=== PATIENT | female | born 2000 | race Caucasian/White ===

== ENCOUNTER 2021-08-15 21:27 | Emergency (ER) | payer BC, SELFPAY ==
--- NOTE | ~2021-08-15 | XR_ITS ---
EXAMINATION: XR WRIST, LEFT CLINICAL INFORMATION: Severe pain. COMPARISON: None TECHNIQUE: PA, lateral, and oblique views of the left wrist. FINDINGS: The bones and soft tissues are normal. No fracture. Alignment is anatomic with normal joint spaces. No erosions or abnormal soft tissue calcifications. XR/XR wrist LT min 3V IMPRESSION: Normal left wrist.
--- NOTE | 2021-08-15 23:39 | ED.EXTPRO ---
HPI - Extremity Problem General Chief complaint: Extremity Problem Stated complaint: severe left wrist pain Source: patient Mode of arrival: ambulatory Limitations: no limitations History of Present Illness HPI Narrative: 21-year-old female presents with severe left wrist pain. Does not report any trauma falls or injury. MD Complaint: extremity pain Onset (ago): day(s) (4) Pain Consistency: constant Location: left and upper extremity Severity scale (1-10): 8 Quality: aching Radiation: none Relieving factors: nothing Exacerbating factors: range of motion, exertion and palpation Associated symptoms: denies other symptoms Related Data Previous Rx's Medication Instructions Recorded ibuprofen 600 mg tablet 600 mg PO Q6H PRN #60 tab 08/16/21 Allergies Allergy/AdvReac Type Severity Reaction Status Date / Time varicella virus vaccine live Allergy Unknown Verified 08/15/21 23:58 varicella-zoster immune Allergy Unknown Verified 08/15/21 23:58 globulin (h Review of Systems Review of Systems: Constitutional: No Fever, No Chills ENT/Mouth: No Ear Pain, No Hoarseness, No sore throat Eyes: No Eye Pain, No Swelling, No Redness, No Foreign Body Cardiovascular: No Chest Pain, No SOB Respiratory: No Cough, No Dyspnea Gastrointestinal: No Nausea, No Vomiting, No Diarrhea, No abdominal Pain Genitourinary: No Dysuria, No Hematuria Musculoskeletal: positive left wrist pain, No Myalgias, No Joint Swelling Skin: No Skin lacerations, No rash Neuro: No Weakness, No Numbness, No Paresthesias, No Loss of Consciousness, No Dizziness, No Headache Psych: No Anxiety/Panic, No Depression Heme/Lymph: no easy bruising, no Lymphadenopathy Endocrine: No Polyuria, No Polydipsia Yes all other systems are reviewed and are negative [facility] Past Medical History Attestation statement: The following information was validated with the patient. Source: old records reviewed Social History Social History Advance Directives: No Patient : No Physical Exam Vital Signs: Vital Signs: Last Vital Signs Temp 99.3 F 08/15/21 23:45 Pulse 68 08/15/21 23:45 Resp 16 08/15/21 23:45 BP 123/70 08/15/21 23:45 Pulse Ox 99 08/15/21 23:45 BMI result Body Mass Index 27.4 Appearance: Alert. Oriented X3. No acute distress. Eyes: Pupils equal, round and reactive to light. ENT: Pharynx normal. Neck: Normal inspection. Neck supple. CVS: Normal heart rate and rhythm. Pulses normal. Respiratory: No respiratory distress. Breath sounds normal. Abdomen: Soft and nontender. Skin: Skin warm and dry. Normal skin color. Normal skin turgor. Extremities: No swelling bruising or ecchymosis noted to left upper extremity. Full range of motion. Negative de Quervain, negative Tinel and Phalen sign. Brisk capillary refill and equal pulses. Neuro: No motor deficit. No sensory deficit. Cranial nerves 2-12 intact. Course Course Course Narrative: 21-year-old female presents with severe left wrist pain that started on Friday. 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 De Quervain, Tinel and Phalen signs negative. Full range of motion to all digits, brisk capillary refill in equal pulses. Will order x-rays. 00:42 x-rays are negative for acute findings. Plan of care to discharge home with wrist splint and ibuprofen. Will refer to orthopedics for suspected carpal tunnel syndrome. Patient verbalized understanding of and agrees to plan of care to discharge home. Verbalized understanding of signs and symptoms indicating need for emergent intervention MDM - Extremity (Nontraumatic) MDM Narrative Medical decision making narrative: Fracture, dislocation, de Quervain tendinitis, carpal tunnel Medical Records Attestation: I reviewed the patient's medical records. Imaging Data Left wrist x-ray: Attestation: I personally reviewed and interpreted this imaging study as follows: Radiologist's impression: EXAMINATION: XR WRIST, LEFT CLINICAL INFORMATION: Severe pain.? COMPARISON: None? TECHNIQUE: PA, lateral, and oblique views of the left wrist. FINDINGS: The bones and soft tissues are normal. No fracture. Alignment is anatomic with normal joint spaces. No erosions or abnormal soft tissue calcifications.? XR/XR wrist LT min 3V IMPRESSION: Normal left wrist. Discharge Plan Discharge Clinical Impression: Acute wrist pain, Carpal tunnel syndrome on left Patient Disposition: Home, Self-Care Instructions: Wrist Injury (ED) Additional Instructions: You were evaluated for left wrist pain. X-rays are negative for acute findings requiring emergent intervention. This could possibly be carpal tunnel. Please follow-up with orthopedics as needed. I referred you to [facility]. Please call and request an appointment for evaluation. Take Motrin 600 mg every 6 hours as needed for pain management. Use wrist splint as needed for comfort. Thank you for choosing this emergency department for evaluation. Please follow-up with primary care physician as needed. Return to the emergency department for any new, concerning, or worsening symptoms. Prescriptions: New ibuprofen 600 mg tablet 600 mg PO Q6H PRN (Reason: pain) Qty: 60 0RF Referrals: [facility] PA-C [[facility] [employer] [employer] [facility]] - (Suspected left carpal tunnel syndrome)
[2021-08-15 23:45] VITALS: BP 123/70; PULSE 68; RESP 16; TEMP 37.4; O2SAT 99; BMI 27.4
[2021-08-16] MEDS: Ibuprofen 600 MG TABLET PO (00:54)
--- NOTE | 2021-08-16 01:14 | PC.NURSE ---
pt pain level reduced to a 07/22. comfor form wrist LT,M for pain. pt teaching done and understands when how and why she needs to wear the device.
== END 2021-08-16 01:19 | disposition home or self-care (01) ==
PROVIDERS: Emergency Provider Emergency Medicine
DX: G56.02 Carpal tunnel syndrome, left upper limb (principal); M25.532 Pain in left wrist
CPT/HCPCS: 73110; 99283